=== PATIENT | female | born 1950 | race African-American/Black ===

== ENCOUNTER 2023-05-21 07:31 | Inpatient (IN) | payer OTHER, MEDICAID ==
[2023-05-21] VITALS (7 sets, daily range): PULSE 93–104; RESP 15–31; O2SAT 97
[~2023-05-21] VITALS: Ht 165.1 cm; Wt 54.4 kg
[2023-05-21] MEDS ORDERED: IPRATROPIUM/ALBUTEROL 0.5-3(2.5)MG/3ML NEB HHN ONE (07:45)
[2023-05-21 08:45] LABS: MEAN CORPUSCULAR HEMOGLOBIN 30.5 pg (28.0-32.0); MEAN CORPUSCULAR VOLUME 92.3 fL (81.0-99.0); PLATELET 107 x1000/uL (130-400); RED BLOOD CELL COUNT 2.23 mill/uL (4.2-5.4); RED CELL DISTRIBUTION WIDTH 14.6 % (11.6-14.6); WHITE BLOOD COUNT 3.7 x1000/uL (4.5-11.0)
[2023-05-21 08:47] LABS: DIFFERENTIAL COMMENT 1
[2023-05-21 08:48] LABS: HEMOGLOBIN. 6.8 g/dL (12.0-16.0)
[2023-05-21 08:49] LABS: HEMATOCRIT. 20.6 % (36.0-48.0)
[2023-05-21 08:56] LABS: BG BASE EXCESS -3.3 mmol/L (-2.0-2.0); BG CARBOXYHEMOGLOBIN 6.1 % (0.5-1.5); BG DEOXYHEMOGLOBIN 3.7 % (0.0-5.0); BG HCO3 ACT 21.8 mmol/L (22.0-26.0); BG METHEMOGLOBIN 0.3 % (0.0-1.5); BG OXYHEMOGLOBIN 89.9 % (94.0-97.0); BG PCO2 38.8 mmHg (35.0-45.0); BG PH 7.367 (7.350-7.450); BG PO2 86.6 mmHg (75.0-100.0); BG SAMPLE SITE RIGHT RADIAL; BG TOTAL HEMOGLOBIN 7.4 g/dL (12.0-18.0); BG VENT MODE MASK - BIPAP
[2023-05-21] MEDS ORDERED: IPRATROPIUM/ALBUTEROL 0.5-3(2.5)MG/3ML NEB HHN NR (09:00)
[2023-05-21] MEDS ORDERED: CEFTRIAXONE 1GM PREMIX 50 ML IV NR (09:00)
[2023-05-21 10:15] LABS: PLATELET ESTIMATE DECREASED
[2023-05-21 13:10] LABS: CHLORIDE 89 mEq/L (98-107); INDEX HEMOLYSI 2 (1-3); INDEX ICTERIC 1 (1-4); INDEX LIPEMIC 1 (1-3); POTASSIUM 4.1 mEq/L (3.5-5.1); SODIUM 132 mEq/L (136-145)
[2023-05-21 13:40] LABS: BG BASE EXCESS -1.7 mmol/L (-2.0-2.0); BG CARBOXYHEMOGLOBIN 2.8 % (0.5-1.5); BG DEOXYHEMOGLOBIN 0.1 % (0.0-5.0); BG HCO3 ACT 25.4 mmol/L (22.0-26.0); BG METHEMOGLOBIN 0.3 % (0.0-1.5); BG OXYGEN SATURATION 99.9 % (92.0-98.5); BG OXYHEMOGLOBIN 96.8 % (94.0-97.0); BG PCO2 56.6 mmHg (35.0-45.0); BG PO2 224.7 mmHg (75.0-100.0); BG SAMPLE SITE RIGHT BRACHIAL; BG TOTAL HEMOGLOBIN 8.5 g/dL (12.0-18.0); BG VENT MODE MASK - NRB
[2023-05-21] MEDS ORDERED: PROPOFOL 10MG/ML 100ML 100 ML IV PRN (13:45)
[2023-05-21] MEDS ORDERED: IPRATROPIUM/ALBUTEROL 0.5-3(2.5)MG/3ML NEB HHN PRN (13:45)
[2023-05-21] MEDS ORDERED: KETAMINE HCL 50 MG/ML 10ML IV NR (13:45)
[2023-05-21] MEDS ORDERED: SODIUM BICARBONATE 8.4% 1 MEQ/ML 50ML SYR IV ONE (14:00)
[2023-05-21 15:20] LABS: CARBON DIOXIDE 21 mEq/L (21-32); GLUCOSE 125 mg/dL (70-105); UREA NITROGEN BLOOD 39 mg/dL (7-21)
[2023-05-21 15:38] LABS: ALBUMIN 2.9 g/dL (3.4-5.0); CALCIUM 7.4 mg/dL (8.5-10.1); CREATININE 7.1 mg/dL (0.6-1.3); PROTEIN TOTAL 8.5 g/dL (6.0-8.3)
[2023-05-21 15:39] LABS: ALANINE AMINOTRANSFERASE 21 IU/L (13-61); ASPARTATE AMINOTRANSFERASE 32 IU/L (15-37); NT PRO B-TYPE NATRIURETIC PEP 29241 pg/mL (5-125); TROPONIN I HIGH SENSITIVITY 123 ng/L (<54)
[2023-05-21 15:42] LABS: BG HCO3 ACT 27.5 mmol/L (22.0-26.0); BG METHEMOGLOBIN 0.2 % (0.0-1.5); BG OXYHEMOGLOBIN 98.8 % (94.0-97.0); BG PCO2 47.7 mmHg (35.0-45.0); BG PH 7.379 (7.350-7.450); BG PO2 376.6 mmHg (75.0-100.0); BG SAMPLE SITE RIGHT RADIAL; BG TOTAL HEMOGLOBIN 9.8 g/dL (12.0-18.0); BG VENT MODE VENT - AC
[2023-05-21] MEDS: METHYLPREDNISOLONE SOD SUCC 40MG/ML (ACT-O-VIAL) IV SCH ×2 (15:53→23:55)
[2023-05-21] MEDS ORDERED: TRAMADOL 50MG TABLET PO PRN (16:00)
[2023-05-21] MEDS ORDERED: FENTANYL 2500MCG/250ML PMX 250 ML IV ONE (16:00)
[2023-05-21] MEDS ORDERED: MIDAZOLAM 100MG/100ML PMX 100 ML IV PRN (16:00)
[2023-05-21] MEDS ORDERED: IPRATROPIUM/ALBUTEROL 0.5-3(2.5)MG/3ML NEB NEB PRN (16:00)
[2023-05-21] MEDS ORDERED: NOREPINEPHRINE 8MG/250ML PMX 250 ML IV PRN (16:00)
[2023-05-21] MEDS ORDERED: PANTOPRAZOLE SODIUM 40 MG/VIAL IV SCH (16:00)
[2023-05-21] MEDS ORDERED: PIPERACILLIN/TAZOBACTAM 3.375 G in DEXTROSE 5% WATER 50 ML IV SCH (16:00)
[2023-05-21] MEDS ORDERED: ACETAMINOPHEN 325MG TABLET PO PRN (16:00)
[2023-05-21] MEDS ORDERED: ONDANSETRON HCL 4MG/2ML INJ IV PRN (16:00)
[2023-05-21] MEDS: PANTOPRAZOLE SODIUM 40 MG/VIAL IV SCH (16:02)
[2023-05-21] MEDS ORDERED: VANCOMYCIN 1.25GM PMX (XELLIA) 250 ML IV NR (16:30)
[2023-05-21] MEDS: MIDAZOLAM HCL 100 MG in SODIUM CHLORIDE 0.9% 100 ML IV PRN (16:30)
[2023-05-21] MEDS: FENTANYL CITRATE 2,500 MCG in SODIUM CHLORIDE 0.9% 200 ML IV PRN (16:30)
[2023-05-21] MEDS: IPRATROPIUM/ALBUTEROL 0.5-3(2.5)MG/3ML NEB HHN SCH ×2 (16:45→20:19)
[2023-05-21] MEDS ORDERED: PIPERACILLIN/TAZ 3.375G PREMIX 50 ML IV NR (17:00)
[2023-05-21 18:11] LABS: BG BASE EXCESS 4.5 mmol/L (-2.0-2.0); BG CARBOXYHEMOGLOBIN 0.7 % (0.5-1.5); BG DEOXYHEMOGLOBIN 2.4 % (0.0-5.0); BG FRACTION INSPIRED OXYGEN 50; BG HCO3 ACT 28.6 mmol/L (22.0-26.0); BG OXYGEN SATURATION 97.6 % (92.0-98.5); BG OXYHEMOGLOBIN 96.9 % (94.0-97.0); BG PH 7.462 (7.350-7.450); BG PO2 98.6 mmHg (75.0-100.0); BG SAMPLE SITE RIGHT RADIAL; BG TOTAL HEMOGLOBIN 9.5 g/dL (12.0-18.0); BG VENT MODE VENT - AC
[2023-05-21 18:12] LABS: HEMATOCRIT 25.6 % (36.0-48.0); HEMOGLOBIN 8.5 g/dL (12.0-16.0); MEAN CORPUSCULAR HGB CONC 33.1 g/dL (31.0-37.0); MEAN CORPUSCULAR VOLUME 87.9 fL (81.0-99.0); PLATELET 75 x1000/uL (130-400); RED BLOOD CELL COUNT 2.91 mill/uL (4.2-5.4); RED CELL DISTRIBUTION WIDTH 16.7 % (11.6-14.6); WHITE BLOOD COUNT 2.8 x1000/uL (4.5-11.0)
[2023-05-21 23:25] LABS: BILIRUBIN TOTAL 1.5 mg/dL (0.1-1.0)
[2023-05-22] VITALS (51 sets, daily range): BP systolic 111–175; BP diastolic 48–126; PULSE 88–141; RESP 13–29; TEMP 97–98.8; O2SAT 100
[2023-05-22] MEDS: IPRATROPIUM/ALBUTEROL 0.5-3(2.5)MG/3ML NEB HHN SCH ×6 (00:45→20:29)
[2023-05-22] MEDS: MIDAZOLAM HCL 100 MG in SODIUM CHLORIDE 0.9% 100 ML IV PRN ×2 (02:48→16:05)
[2023-05-22 05:16] LABS: CHLORIDE 93 mEq/L (98-107); INDEX HEMOLYSI 1 (1-3); INDEX ICTERIC 1 (1-4); INDEX LIPEMIC 1 (1-3); POTASSIUM 4.4 mEq/L (3.5-5.1); SODIUM 134 mEq/L (136-145)
[2023-05-22 05:23] LABS: BASOPHILS % 0.1 % (0.0-2.0); EOSINOPHILS % 0.1 % (0.0-5.0); HEMATOCRIT. 23.5 % (36.0-48.0); HEMOGLOBIN. 7.7 g/dL (12.0-16.0); MEAN CORPUSCULAR HEMOGLOBIN 28.7 pg (28.0-32.0); MEAN PLATELET VOLUME 7.6 fl (7.4-10.4); MONOCYTES % 7.8 % (2.0-8.0); PLATELET 59 x1000/uL (130-400); RED CELL DISTRIBUTION WIDTH 16.4 % (11.6-14.6); WHITE BLOOD COUNT 3.1 x1000/uL (4.5-11.0)
[2023-05-22 05:26] LABS: ALANINE AMINOTRANSFERASE 22 IU/L (13-61); ALBUMIN 2.2 g/dL (3.4-5.0); ASPARTATE AMINOTRANSFERASE 27 IU/L (15-37); BILIRUBIN TOTAL 1.1 mg/dL (0.1-1.0); CALCIUM 6.5 mg/dL (8.5-10.1); CARBON DIOXIDE 27 mEq/L (21-32); CHOLESTEROL 100 mg/dL (<200); GLUCOSE 97 mg/dL (70-105); HDL CHOLESTEROL 33 mg/dL (40-59); LDL CHOLESTEROL 59 mg/dL (5-100); TRIGLYCERIDE 68 mg/dL (0-150); UREA NITROGEN BLOOD 50 mg/dL (7-21)
[2023-05-22 06:13] LABS: CREATININE 7.7 mg/dL (0.6-1.3)
[2023-05-22] MEDS: METHYLPREDNISOLONE SOD SUCC 40MG/ML (ACT-O-VIAL) IV SCH ×3 (06:38→22:57)
[2023-05-22] MEDS ORDERED: PIPERACILLIN/TAZOBACTAM 3.375 G in DEXTROSE 5% WATER 50 ML IV SCH (08:00)
[2023-05-22] MEDS ORDERED: LIDOCAINE HCL 1% 10 MG/ML 10ML VIAL ONE (08:27)
[2023-05-22 08:28] LABS: BG BASE EXCESS 1.5 mmol/L (-2.0-2.0); BG CARBOXYHEMOGLOBIN 0.1 % (0.5-1.5); BG DEOXYHEMOGLOBIN 1.3 % (0.0-5.0); BG FRACTION INSPIRED OXYGEN 50; BG HCO3 ACT 24.9 mmol/L (22.0-26.0); BG METHEMOGLOBIN 0.3 % (0.0-1.5); BG OXYGEN SATURATION 98.7 % (92.0-98.5); BG OXYHEMOGLOBIN 98.3 % (94.0-97.0); BG PCO2 34.3 mmHg (35.0-45.0); BG PH 7.479 (7.350-7.450); BG PO2 145.4 mmHg (75.0-100.0); BG SAMPLE SITE RIGHT RADIAL; BG TOTAL HEMOGLOBIN 8.4 g/dL (12.0-18.0); BG VENT MODE VENT - AC
[2023-05-22] MEDS: PIPERACILLIN/TAZOBACTAM 3.375 G in DEXTROSE 5% WATER 50 ML IV SCH ×2 (09:30→21:00)
[2023-05-22] MEDS: PANTOPRAZOLE SODIUM 40 MG/VIAL IV SCH (09:40)
[2023-05-22 09:44] LABS: PROTHROMBIN TIME 11.1 sec (9.6-11.0)
[2023-05-22 13:23] LABS: HEPATITIS B SURFACE ANTIGEN NEGATIVE
[2023-05-22 13:48] LABS: HEPATITIS C VIR.AB 0.11 INDEXVAL (0.00-0.80)
[2023-05-22 13:49] LABS: HEPATITIS B CORE AB IGM NEGATIVE
[2023-05-22 13:50] LABS: HEPATITIS A AB IGM NEGATIVE (NEGATIVE)
[2023-05-22] MEDS ORDERED: NALOXONE HCL 0.4MG/ML VIAL IV PRN (14:45)
[2023-05-23] VITALS (92 sets, daily range): BP systolic 83–149; BP diastolic 48–110; PULSE 85–121; RESP 0–29; TEMP 96.3–98.6
[2023-05-23] MEDS: IPRATROPIUM/ALBUTEROL 0.5-3(2.5)MG/3ML NEB HHN SCH ×5 (00:12→20:42)
[2023-05-23] MEDS: MIDAZOLAM HCL 100 MG in SODIUM CHLORIDE 0.9% 100 ML IV PRN (03:15)
[2023-05-23] MEDS: FENTANYL CITRATE 2,500 MCG in SODIUM CHLORIDE 0.9% 200 ML IV PRN (03:15)
[2023-05-23 04:52] LABS: HEMATOCRIT. 22.9 % (36.0-48.0); HEMOGLOBIN. 7.7 g/dL (12.0-16.0); MEAN CORPUSCULAR HEMOGLOBIN 29.3 pg (28.0-32.0); MEAN CORPUSCULAR HGB CONC 33.7 g/dL (31.0-37.0); MEAN CORPUSCULAR VOLUME 86.8 fL (81.0-99.0); MEAN PLATELET VOLUME 8.3 fl (7.4-10.4); PLATELET 61 x1000/uL (130-400); RED BLOOD CELL COUNT 2.63 mill/uL (4.2-5.4); RED CELL DISTRIBUTION WIDTH 16.7 % (11.6-14.6)
[2023-05-23] MEDS: METHYLPREDNISOLONE SOD SUCC 40MG/ML (ACT-O-VIAL) IV SCH ×2 (05:10→13:47)
[2023-05-23 05:12] LABS: POTASSIUM 3.6 mEq/L (3.5-5.1)
[2023-05-23 05:19] LABS: CALCIUM 7.4 mg/dL (8.5-10.1)
[2023-05-23 05:29] LABS: DIFFERENTIAL COMMENT 1
[2023-05-23 06:00] LABS: CREATININE 5.4 mg/dL (0.6-1.3)
[2023-05-23] MEDS: PIPERACILLIN/TAZOBACTAM 3.375 G in DEXTROSE 5% WATER 50 ML IV SCH (08:51)
[2023-05-23] MEDS: PANTOPRAZOLE SODIUM 40 MG/VIAL IV SCH (08:51)
[2023-05-23 14:01] LABS: PLATELET ESTIMATE DECREASED
[2023-05-23 14:02] LABS: ANISOCYTOSIS 2+
== END 2023-05-23 23:30 | disposition short-term general hospital (02) | DRG 871 ==
LOC: ER 07:31 → MICUSO 08:47 → EDBEDREQSVC 13:52
PROVIDERS: ADMIT Hospitalist; ATTEND Hospitalist
PROC: 06HY33Z Insertion of Infusion Device into Lower Vein, Percutaneous Approach (ICD-10-PCS; principal; 2023-05-21)
PROC: 30233N1 Transfusion of Nonautologous Red Blood Cells into Peripheral Vein, Percutaneous Approach (ICD-10-PCS; 2023-05-21)
PROC: 5A1945Z Respiratory Ventilation, 24-96 Consecutive Hours (ICD-10-PCS; 2023-05-21)
PROC: 0BH17EZ Insertion of Endotracheal Airway into Trachea, Via Natural or Artificial Opening (ICD-10-PCS; 2023-05-21)
PROC: 02H633Z Insertion of Infusion Device into Right Atrium, Percutaneous Approach (ICD-10-PCS; 2023-05-22)
PROC: B548ZZA Ultrasonography of Superior Vena Cava, Guidance (ICD-10-PCS; 2023-05-22)
PROC: 5A1D70Z Performance of Urinary Filtration, Intermittent, Less than 6 Hours Per Day (ICD-10-PCS; 2023-05-22)
DX: A41.9 Sepsis, unspecified organism (principal); G93.41 Metabolic encephalopathy; J69.0 Pneumonitis due to inhalation of food and vomit; J96.02 Acute respiratory failure with hypercapnia; N18.6 End stage renal disease; I50.33 Acute on chronic diastolic (congestive) heart failure; E87.1 Hypo-osmolality and hyponatremia; I13.2 Hypertensive heart and chronic kidney disease with heart failure and with stage 5 chronic kidney disease, or end stage renal disease; J44.0 Chronic obstructive pulmonary disease with (acute) lower respiratory infection; J44.1 Chronic obstructive pulmonary disease with (acute) exacerbation; D63.1 Anemia in chronic kidney disease; D69.6 Thrombocytopenia, unspecified; F17.200 Nicotine dependence, unspecified, uncomplicated; Z85.118 Personal history of other malignant neoplasm of bronchus and lung; Z99.81 Dependence on supplemental oxygen; Z99.2 Dependence on renal dialysis
CPT/HCPCS: 31500; 36415; 36573; 36600; 71045; 80048; 80053; 80061; 80202; 82375; 82805; 82962; 83880; 84484; 85025; 85027; 85044; 86705; 86709; 86803; 86850; 86900; 86920; 87340; 90935; 93005; 93970; 94002; 94003; 94640; 99291; C1725; C9113; J0696; J2250; J2543; J2704; J2920; J3010; J3370; J3490; J7050; J7060; P9016